=== PATIENT | female | born 2000 | race Caucasian/White ===

== ENCOUNTER 2021-09-06 11:34 | Outpatient (REF) | payer OTHER, SELFPAY ==
[2021-09-07 10:18] LABS: Monotest Negative (Negative)
== END 2021-09-06 11:35 | disposition home or self-care (01) ==
LOC: HO.HMGCLDS 11:34
PROVIDERS: PCP Physician Assistant; Visit Provider Internal Medicine
DX: Z13.9 Encounter for screening, unspecified (principal)
CPT/HCPCS: 36415; 86308

== ENCOUNTER 2022-06-27 16:36 | Outpatient (REF) | payer OTHER, SELFPAY ==
--- NOTE | ~2022-06-27 | XR_ITS ---
EXAMINATION: XR CHEST CLINICAL INFORMATION: Cough COMPARISON: None TECHNIQUE: 2 views of the chest were obtained. FINDINGS: The lungs are well expanded. There is no focal consolidation, edema, or effusion. No pneumothorax. The cardiomediastinal silhouette is within normal limits. No acute osseous abnormality. XR/XR chest 2V IMPRESSION: Clear lungs.
== END 2022-06-27 16:37 | disposition home or self-care (01) ==
LOC: HO.XRAY 16:36
PROVIDERS: Visit Provider Pediatrics
DX: R05.9 Cough, unspecified (principal)
CPT/HCPCS: 71046

== ENCOUNTER 2024-02-20 09:04 | Outpatient (AMB) | payer OTHER, SELFPAY ==
[2024-02-20 09:45] VITALS: BP 112/70; PULSE 87; TEMP 36.3; O2SAT 99; BMI 42.0
--- NOTE | 2024-02-20 09:45 | MHC.OFFWIV ---
Intake Vital Signs 02/20/24 09:45 Height 5 ft 7 in Weight 268 lb BMI 42.0 BP 112/70 Blood Pressure Location Lt brachial Position Sitting Pulse 87 Pulse Source Pulse Oximeter Temp 97.4 F Temp Source Temporal Artery Scan Pulse Oximetry (%) 99 Oxygen Delivery Method Room Air Intake Visit Reasons: EP congestion sinus sore throat Intake Note: pt is here today for congestion sinus sore throat started 3 days ago Patient Tobacco Use Status: Never used Tobacco Allergies prozac. POSSIBLE but urtica Allergy (Mild, Uncoded 02/20/24 10:10) urticarial rash on arms Medication List - Last Reconciled 02/20/24 by LITA Mallory amoxicillin-pot clavulanate 875-125 mg 1 tab PO Q12H ketoconazole 2% 1 appl topical DAILY Do you need a note to return to daycare/school/sports/work: Yes HPI HPI Comments History of Present Illness Details Patient is a 23-year-old female in today for sick visit. Patient states that for the past 3 days she has developed symptoms of sore throat, raspy throat, headache. Patient is strep positive in office today. Patient also states she has a rash on her left bicep x1 week. Has tried hydrocortisone cream with little effect. Patient denies chest pain, shortness a breath, nausea, vomiting, diarrhea, numbness. Patient is able to eat and drink and hold food down. [facility] Medical History Asthma, mild intermittent Surgical History No pertinent past surgical history Family History Mother No problems noted. Father Chronic mental disorder Substance abuse Social History Household Members: None Both parents involved: No Housing: Apartment Are you a primary day care director to a significant other at home: No Patient Tobacco Use Status: Never used Tobacco Cognitive needs: No Hearing needs: No Vision needs: Yes Review of Systems Const All systems reviewed & are unremarkable except as noted in HPI and below Physical Exam Vital Signs: Last Vital Signs Temp 97.4 F 02/20/24 09:45 Pulse 87 02/20/24 09:45 BP 112/70 02/20/24 09:45 Pulse Ox 99 02/20/24 09:45 Oxygen Delivery Method Room Air 02/20/24 09:45 BMI result Body Mass Index 42.0 Vital signs reviewed and stable. Const Other: Appearance: Alert.? Oriented X3.? No acute distress.? Head: Normocephalic, atraumatic. Eyes: Pupils equal, round and reactive to light.? ENT: Pharynx erythema. +tonsilar exudates. Neck: Normal inspection.? Neck supple.?Full ROM. CVS: Normal heart rate and rhythm.? Pulses normal.? Respiratory: No respiratory distress.? Breath sounds normal.? Skin: Erythema in a ring, slightly raised, no discharge. Neuro: Oriented X 3.? No motor deficit.? No sensory deficit. CN 2-12 intact Results AMB Rapid Strep AMB Rapid Strep Positive Last Edit by Pipe Zimmerman MA on 02/20/24 10:02 Results Reviewed Results Reviewed: Laboratory Last Values Strep Scn Rapid Clinic Positive 02/20/24 10:01 Assessment & Plan Assessment & Plan (1) Strep throat: Comment: Patient will be given Augmentin to be taken as prescribed. Patient can also utilize [id number] septic call throat spray. Patient is able to drink and eat and hold down food without vomiting or nausea. Code(s): J02.0 - Streptococcal pharyngitis Plan: Take your medications as prescribed. If you were prescribed antibiotics today, it is important that you take your medication to their entirety, do not skip any doses, do not finish them early. Follow-up with your primary care provider this week. Return to the emergency department with new or worsening symptoms. Such as fevers, chills, chest pain, shortness of breath, nausea, vomiting, dizziness, headache, vision changes, lethargy In case of emergency call 911 (2) Tinea: Comment: Will give patient ketoconazole 2% topical cream to be applied directly to the area. Code(s): B35.9 - Dermatophytosis, unspecified Plan: Take your medications as prescribed. If you were prescribed antibiotics today, it is important that you take your medication to their entirety, do not skip any doses, do not finish them early. Follow-up with your primary care provider this week. Return to the emergency department with new or worsening symptoms. Such as fevers, chills, chest pain, shortness of breath, nausea, vomiting, dizziness, headache, vision changes, lethargy In case of emergency call 911 Plan Follow-up with PCP Orders: Orders SARS-CoV2/FLU/RSV Today J06.9 - Acute upper respiratory infection, unspecified Medications: New amoxicillin-pot clavulanate 875-125 mg 1 tab PO Q12H 14 tabs 0RF ketoconazole 2% 1 appl topical DAILY 30 grams 0RF Coding Level of Care Code Est Pt Level 3 (14014) Diagnoses Strep throat J02.0 Tinea B35.9 Time Spent (min) 25
== END 2024-02-20 11:22 | disposition home or self-care (01) ==
PROVIDERS: PCP Physician Assistant; Visit Provider Nurse Practitioner Primary Care
DX: J02.0 Streptococcal pharyngitis (principal); B35.9 Dermatophytosis, unspecified
CPT/HCPCS: 87880; 99213

== ENCOUNTER 2024-02-20 13:27 | Outpatient (REF) | payer OTHER, SELFPAY ==
[2024-02-20 14:12] LABS: Influenza A PCR NEGATIVE (Negative); Influenza B PCR NEGATIVE (Negative); Resp Syncy Virus RNA Qual PCR NEGATIVE (Negative); SARS COV2 PCR INHOUSE NEGATIVE (Negative)
== END 2024-02-20 13:28 | disposition home or self-care (01) ==
LOC: HO.HMGCLNP 13:27
PROVIDERS: Visit Provider Nurse Practitioner Primary Care
DX: J06.9 Acute upper respiratory infection, unspecified (principal)
CPT/HCPCS: 0241U

== ENCOUNTER 2024-06-10 13:36 | Outpatient (AMB) | payer OTHER, SELFPAY ==
--- NOTE | 2024-06-10 13:40 | MHC.OFFWIV ---
Intake Vital Signs 06/10/24 13:41 Height 5 ft 7 in Weight 265 lb BMI 41.5 BP 112/72 Blood Pressure Location Lt brachial Position Sitting Pulse 112 H Pulse Source Pulse Oximeter Temp 98.4 F Temp Source Oral Pulse Oximetry (%) 98 Oxygen Delivery Method Room Air Intake Visit Reasons: Swollen throat, Pus, and discomfort Intake Note: Patient here for sore throat, discomfort and pus coming from tonsils. Patient Tobacco Use Status: Never used Tobacco Allergies prozac. POSSIBLE but urtica Allergy (Mild, Uncoded 06/10/24 13:43) urticarial rash on arms Do you need a note to return to daycare/school/sports/work: Yes HPI Swollen throat, Pus, and discomfort HPI Details This note is constructed using voice recognition software. While every effort has been made to ensure accuracy, securities supervisor errors may have been included. The patient is a 23 year old female who presents to the clinic today with for the past few days. She denies fever, chills, cough, shortness of breath. She has been around her boyfriend who has similar symptoms. She looked in the back of her throat noticed pus, felt that she could have had strep throat. She requests treatment for yeast infection as she notes that she gets 1 with each antibiotic. [facility] Medical History Asthma, mild intermittent Surgical History No pertinent past surgical history Family History Mother No problems noted. Father Chronic mental disorder Substance abuse Social History Household Members: None Both parents involved: No Housing: Apartment Are you a primary child care center administrator to a significant other at home: No Patient Tobacco Use Status: Never used Tobacco Cognitive needs: No Hearing needs: No Vision needs: Yes Review of Systems Const All systems reviewed & are unremarkable except as noted in HPI and below Physical Exam Vital Signs: Last Vital Signs Temp 98.4 F 06/10/24 13:41 Pulse 112 H 06/10/24 13:41 BP 112/72 06/10/24 13:41 Pulse Ox 98 06/10/24 13:41 Oxygen Delivery Method Room Air 06/10/24 13:41 BMI result Body Mass Index 41.5 Const General: cooperative, healthy appearing, comfortable and no acute distress Orientation/consciousness: patient oriented x3 Limitations: no limitations HEENT Head: Yes normal to inspection Ears: hearing grossly normal bilaterally, external ears normal and TM's normal bilaterally General nose exam: Normal external nose present, Normal nares present and No nasal discharge present Face and sinus: Yes normal facial exam and Yes sinuses nontender Mouth: Normal oral and palatal mucosa present and moist mucous membranes Throat: Yes tonsils normal, Yes uvula midline and Yes posterior oropharynx abnormal (Erythema with exudate) Eyes General: appearance normal, both eyes and all related structures Neck Neck: Yes normal visual inspection and Yes lymphadenopathy (anterior) Resp Effort & Inspection: normal respiratory effort, able to speak in complete sentences, Actively coughing, no respiratory distress, not tachypneic, no tripod positioning and no use of accessory muscles Auscultation: clear to auscultation bilaterally Cardio Rate: regular rate Rhythm: regular rhythm Heart sounds: normal S1 and S2 Skin General skin exam: no rashes or lesions noted Neuro General: patient oriented x3 Extrem General: Yes normal to inspection and Yes no clubbing, cyanosis or edema Results AMB Rapid Strep AMB Rapid Strep Positive Last Edit by PRANAV Radford on 06/10/24 13:51 Results Reviewed Results Reviewed: Laboratory Last Values Strep Scn Rapid Clinic Positive 06/10/24 13:50 Assessment & Plan Assessment & Plan (1) Strep throat: Code(s): J02.0 - Streptococcal pharyngitis Plan Antimicrobial therapy sent to requested pharmacy. Advised patient to change toothbrush after 24 hours of antimicrobial treatment. Advised warm saltwater gargle for symptomatic management as well as NSAIDs. Advised avoidance contact with others until she is 24 hours antibiotic treatment. Given the patient has had yeast infections with this similar antibiotics in the past, we will send fluconazole for symptomatic management should this symptoms occur. Orders: Orders AMB Rapid Strep Screen Today Neeta Cruz PA-C Z13.9 - Encounter for screening, unspecified Medications: New penicillin V potassium 500 mg PO TID 10 days 30 tabs 0RF Jessica Avelar NP fluconazole 150 mg PO ONCE 1 dose 1 tab 0RF Jessica Avelar NP Coding Level of Care Code Est Pt Level 3 (73282) Diagnoses Strep throat J02.0
[2024-06-10 13:41] VITALS: BP 112/72; PULSE 112; TEMP 36.9; O2SAT 98; BMI 41.5
== END 2024-06-10 14:28 | disposition home or self-care (01) ==
PROVIDERS: PCP Physician Assistant; Visit Provider Registered Nurse
DX: Z13.9 Encounter for screening, unspecified (principal); J02.0 Streptococcal pharyngitis
CPT/HCPCS: 87880; 99213

== ENCOUNTER 2024-07-06 13:27 | Outpatient (AMB) | payer OTHER, SELFPAY ==
--- NOTE | 2024-07-06 13:29 | MHC.OFFWIV ---
Intake Vital Signs 07/06/24 13:30 Height 5 ft 7 in Weight 252 lb BMI 39.5 BP 122/84 Blood Pressure Location Lt brachial Position Sitting Pulse 120 H Pulse Source Pulse Oximeter Temp 98.4 F Temp Source Oral Pulse Oximetry (%) 98 Intake Visit Reasons: EP UTI? Intake Note: pt c/o urinary frequency and discomfort, cloudiness, burning. Started Saturday Patient Tobacco Use Status: Never used Tobacco Allergies prozac. POSSIBLE but urtica Allergy (Mild, Uncoded 07/06/24 13:29) urticarial rash on arms Do you need a note to return to daycare/school/sports/work: Yes HPI HPI Comments History of Present Illness Details Patient presents to the walk-in today for sick visit Complaining of UTI symptoms for last 3 days Endorses cloudy urine, slight odor to the urine, pain with urination. Denies nausea, vomiting, diarrhea, abdominal pain, back pain, fevers, chills, weakness, blood in urine Denies chance of Denies concern for STI PFSH Medical History Asthma, mild intermittent Surgical History No pertinent past surgical history Family History Mother No problems noted. Father Chronic mental disorder Substance abuse Social History Household Members: None Housing: Apartment Are you a primary rn managed care to a significant other at home: No Patient Tobacco Use Status: Never used Tobacco Cognitive needs: No Hearing needs: No Vision needs: Yes Review of Systems Const All systems reviewed & are unremarkable except as noted in HPI and below Physical Exam Vital Signs: Last Vital Signs Temp 98.4 F 07/06/24 13:30 Pulse 120 H 07/06/24 13:30 BP 122/84 07/06/24 13:30 Pulse Ox 98 07/06/24 13:30 BMI result Body Mass Index 39.5 General: awake, alert, oriented. Answers questions appropriately. Fully engaged in examination. Skin: warm, dry, intact HEENT: Normocephalic. Hearing intact. Cardiac: External chest normal in appearance. Respiratory: No cough, audible wheezing or stridor. Abdomen: without gross distension. soft, nontender. no guarding. no CVA tenderness MS: No obvious swelling or deformities. Neurological: Oriented to person, place, time and situation. Thought process intact. No gait abnormalities appreciated. Psychiatric: Appropriate mood and affect. Good judgment and insight. Results AMB Urinalysis, Automated UA Leukoctes 125 Martha/uL Last Edit by Roel Self CMA on 07/06/24 13:44 UA Nitrite Positive Last Edit by Roel Self CMA on 07/06/24 13:44 UA Urobilinogen 0.2 mg/dL Last Edit by Roel Self CMA on 07/06/24 13:44 UA Protein 15 mg/dL Last Edit by Roel Self CMA on 07/06/24 13:44 UA pH 6.0 Last Edit by Roel Self CMA on 07/06/24 13:44 UA Blood 80 Emil/uL Last Edit by Roel Self CMA on 07/06/24 13:44 UA Specific [place] 1.015 Last Edit by Roel Self CMA on 07/06/24 13:44 UA Ketone Negative Last Edit by Roel Self CMA on 07/06/24 13:44 UA Bilirubin 0 mg/dL Last Edit by Roel Self CMA on 07/06/24 13:44 UA Glucose 0 mg/dL Last Edit by Roel Self CMA on 07/06/24 13:44 Results Reviewed Results Reviewed: Laboratory Last Values Urine pH (Auto) 6.0 07/06/24 13:43 Specific [place] (Auto) 1.015 07/06/24 13:43 Urine Protein (Auto) 15 mg/dL 07/06/24 13:43 Glucose (UA)(Auto) 0 mg/dL 07/06/24 13:43 Urine Ketones (Auto) Negative 07/06/24 13:43 Urine Blood (Auto) 80 Emil/uL 07/06/24 13:43 Urine Nitrite (Auto) Positive 07/06/24 13:43 Urine Bilirubin (Auto) 0 mg/dL 07/06/24 13:43 Urine Urobilinogen (Auto) 0.2 mg/dL 07/06/24 13:43 Leukocyte Esterase (Auto) 125 Martha/uL 07/06/24 13:43 Assessment & Plan Assessment & Plan (1) Urinary tract infection: Code(s): N39.0 - Urinary tract infection, site not specified Plan Macrobid 100 mg p.o. twice daily x5 days Pyridium 100 mg p.o. t.i.d. as needed Increase fluid intake. Return to clinic for new fever or back pain or if symptoms persist. Orders: Orders AMB Urinalysis Automated Today Neeta Cruz PA-C Z13.9 - Encounter for screening, unspecified CT NG by PCR Today Neeta Cruz PA-C Z13.9 - Encounter for screening, unspecified Medications: New nitrofurantoin monohyd/m-cryst 100 mg (Macrobid) must administer with a meal/food 100 mg PO Q12H 5 days 10 caps 0RF Nikky Rangel APRN, HOME ECONOMICS EXTENSION WORKER phenazopyridine (Pyridium) 100 mg PO TID PRN 6 tabs 0RF pain Nikky Rangel APRN, HOME ECONOMICS EXTENSION WORKER Coding Level of Care Code Est Pt Level 3 (92636) Diagnoses Urinary tract infection N39.0
[2024-07-06 13:30] VITALS: BP 122/84; PULSE 120; TEMP 36.9; O2SAT 98; BMI 39.5
== END 2024-07-06 14:16 | disposition home or self-care (01) ==
PROVIDERS: PCP Physician Assistant; Visit Provider Registered Nurse Emergency
DX: Z13.9 Encounter for screening, unspecified (principal); N39.0 Urinary tract infection, site not specified
CPT/HCPCS: 81003; 99213

== ENCOUNTER 2024-07-06 13:56 | Outpatient (REF) | payer OTHER, SELFPAY ==
[2024-07-06 17:57] LABS: CT PCR DETECTED (Not Detect.); NG PCR NOT DETECTED (Not Detect.)
== END 2024-07-06 13:57 | disposition home or self-care (01) ==
LOC: HO.LAB 13:56
PROVIDERS: Visit Provider Physician Assistant
DX: Z13.9 Encounter for screening, unspecified (principal)
CPT/HCPCS: 87491; 87591

== ENCOUNTER 2024-11-30 10:51 | Outpatient (AMB) | payer OTHER, SELFPAY ==
--- NOTE | 2024-11-30 11:11 | MHC.OFFWIV ---
Intake Vital Signs 11/30/24 11:12 Weight 229 lb BP 122/80 Blood Pressure Location Rt brachial Position Sitting Pulse 81 Pulse Source Pulse Oximeter Temp 98.2 F Temp Source Oral Pulse Oximetry (%) 98 Oxygen Delivery Method Room Air Intake Visit Reasons: EP ? Yeast infection Intake Note: Patient here for yeast infection that started Saturday. she has been trying monistat. pt is on menstrual cycle. Patient Tobacco Use Status: Never used Tobacco Allergies prozac. POSSIBLE but urtica Allergy (Mild, Uncoded 11/30/24 11:13) urticarial rash on arms Do you need a note to return to daycare/school/sports/work: No HPI HPI Comments History of Present Illness Details 24 y/o female patient who presents to the walk in clinic with c/o Vaginal discharge and itching since Saturday. She used OTC Monistat 1 day dose with no relief. She is currently Spotting - has IUD. Sexually active with 1 male partner. [facility] Medical History (Updated 11/30/24 @ 11:32 by Brittaney Allen NP) Vaginitis and vulvovaginitis Asthma, mild intermittent Surgical History No pertinent past surgical history Family History Mother No problems noted. Father Chronic mental disorder Substance abuse Social History Household Members: None Both parents involved: No Housing: Apartment Are you a primary farm or ranch animal caretaker to a significant other at home: No Patient Tobacco Use Status: Never used Tobacco Cognitive needs: No Hearing needs: No Vision needs: Yes Review of Systems Const All systems reviewed & are unremarkable except as noted in HPI and below Physical Exam Vital Signs: Last Vital Signs Temp 98.2 F 11/30/24 11:12 Pulse 81 11/30/24 11:12 BP 122/80 11/30/24 11:12 Pulse Ox 98 11/30/24 11:12 Oxygen Delivery Method Room Air 11/30/24 11:12 Const General: cooperative and no acute distress Nutritional Appearance: obese Orientation/consciousness: patient oriented x3 General: Yes no CVA tenderness External Female Exam: normal external appearance Speculum Exam - Vagina: abnormal vaginal discharge white and erythematous Speculum Exam - Cervix: Cervical os open, Abnormal cervical discharge present white, nontender and Other cervical findings present (Menstrual Blood present) Bimanual exam- vagina & uterus: uterine size normal, No Cervical tenderness present and non-tender OB/external & speculum: Cervical os open Back/Spine/Pelvis Back: no CVA tenderness Neuro General: patient oriented x3, gait normal and moves all extremities Psych Speech and movement: Normal speech and movement present Assessment & Plan Assessment & Plan (1) Vaginitis and vulvovaginitis: Code(s): N76.0 - Acute vaginitis Plan: Pelvic/Vaginal Exam consistent with Sonia Ordered Fluconazole. Medications: New fluconazole TAKE 1 TABLET NOW, MAY REPEAT SECOND DOSE IN 3 DAYS (72 HOURS). 150 mg PO DAILY 7 tabs 0RF N76.0 - Acute vaginitis Coding Level of Care Code Est Pt Level 4 (69129) Diagnoses Vaginitis and vulvovaginitis N76.0 Time Spent (min) 20
[2024-11-30 11:12] VITALS: BP 122/80; PULSE 81; TEMP 36.8; O2SAT 98
--- OUTSIDE RECORDS SUMMARY | 2024-11-30 11:54 | XMS_ITS | Clinical Summary ---
Author Organization [employer] Address [address] [place] [address] Care Team Providers Care Photovoltaic Solar Cell Designer Name Role Phone Unavailable Primary Care Provider Unavailabl e Allergies No known active allergies Medications No known medications Immunizations Name Administration Dates Next Due Meningococcal B, Recombinant 05/04/2021 Meningococcal [id number] 12/04/2017 Pfizer Covid-19 Vaccine 12+ Bivalent 12/31/2022 Social History Tobacco Use Types Packs/Day Years Used Date Smoking Tobacco: Never Tobacco Cessation:Counseling Given: No Alcohol Use Standard Drinks/Week Comments Yes 0 (1 standard drink = 0.6 oz pur e alcohol) holidays Comments Unknown Sex and Gender Information Value Date Recorded Sex Assigned at Female 08/27/2022 10:38 AM EDT Legal Sex Female 10:38 AM EDT Gender Identity Choose not to disclose 10:38 AM EDT Sexual Orientation Choose not to disclose 2021 10:38 AM EDT Last Filed Vital Signs Vital Sign Reading Time Taken Comments Blood Pressure 125/74 03/18/2023 3:35 PM EDT Pulse 63 03/18/2023 3:35 PM EDT Temperature - - Respiratory Rate - - Oxygen Saturation - - Inhaled Oxygen Concentration - - Weight - - Height - - Body Mass Index - - Plan of Treatment Health Maintenance Due Date Last Done Comments Chlamydia and Gonorrhea Screening 2001 Depression Screening 2001 HIV Screening 2001 SDOH Screening 2001 Alcohol/Substance Use Screening 2013 Family Planning (PISQ) 2016 HPV Vaccines (1 - 3-dose series) 2016 Hepatitis C Screening 2019 DTaP/Tdap/Td Vaccines (1 - Tdap) 2020 Hepatitis B Vaccines (1 of 3 - 19+ 3-dose series) 2020 Dental Prophylaxis 12/29/2021 06/30/2021 Pap Smear 2022 Dental Oral Exam 09/19/2023 03/18/2023, 06/13/2021 Tobacco Screening 04/12/2024 04/12/2023 Dental X-Ray: Bitewings 04/13/2024 04/12/20 23, 03/18/2023, 06/13/2021 Dental X-Ray: Full Mouth 06/14/2024 06/13/2021 COVID-19 Vaccine ( season) 2024 12/31/2022, 01/20/2022, 04/10/2021, Additional history exists Influenza Vaccine (#1) 2024 Zoster Vaccines (1 of 2) 2051 RSV Patients and Patients Aged 60 years or older (1 - 1-dose 75+ series) 2076 Meningococcal Vaccine Completed 12/04/2017 HIB Vaccines Aged Out No longer eligi ble based on patient's age to complete this topic Hepatitis A Vaccines Aged Out No long er eligible based on patient's age to complete this topic IPV Vaccines Aged Out No longer eligi ble based on patient's age to complete this topic Pneumococcal Vaccine: Pediatrics (0 to 5 Years) and At-Risk Patients (6 to 49) Years) Aged Out No longer eligible based on patient's age to complete this topic RSV under 20 months Aged Out No longe r eligible based on patient's age to complete this topic Rotavirus Vaccines Aged Out No longer eligible based on patient's age to complete this topic Procedures Procedure Name Priority Date/Time Associated Diagnosis Comments BITEWING - SINGLE RADIOGRAPHIC IMAGE Routine 04/12/2023 8:00 AM EDT PERIODIC ORAL EVALUATION - ESTABLISHED PATIENT Routine 03/18/2023 3:00 PM EDT PROPHYLAXIS - ADULT Routine 06/30/2021 1 2:00 AM EDT DIAGNOSTIC - DIAGNOSTIC IMAGING - INTRAORAL - COMPREHENSIVE SERIES OF RADIOGRAPHIC IMAGES Routine 06/13/2021 12:00 AM EDT from Last 3 Months or Most Recently Relevant to Health Maintenance Insurance DENTAL - [employer] DENTAL - [employer]
--- OUTSIDE RECORDS SUMMARY | 2024-11-30 11:54 | XMS_ITS | Encounter Summary ---
Author Organization [employer] [facility] Address [address] [place] [address] Care Team Providers Care Bisque Grader Name Role Phone Unavailable Primary Care Provider Unavailabl e Encounter Details Date Type Department Care Team (Latest Contact Info) Description 06/13/2021 Abstract [facility] CONVERSIONS Dental, Provider, DDS Social History Tobacco Use Types Packs/Day Years Used Date Smoking Tobacco: Never Assessed Comments Unknown Sex and Gender Information Value Date Recorded Sex Assigned at Female 08/27/2022 10:38 AM EDT Legal Sex Female 10:38 AM EDT Gender Identity Choose not to disclose 10:38 AM EDT Sexual Orientation Choose not to disclose 2021 10:38 AM EDT documented as of this encounter Plan of Treatment Not on file documented as of this encounter Visit Diagnoses Not on filedocumented in this encounter
== END 2024-11-30 11:56 | disposition home or self-care (01) ==
PROVIDERS: PCP Physician Assistant; Visit Provider Nurse Practitioner Family
DX: N76.0 Acute vaginitis (principal)

== ENCOUNTER 2024-12-11 14:19 | Outpatient (REF) | payer OTHER, SELFPAY ==
--- NOTE | ~2024-12-11 | XR_ITS ---
CLINICAL HISTORY: M54.6 - Pain in thoracic spine 2 views thoracic spine Comparison: None Findings: Normal vertebral body alignment. Limited evaluation of the upper thoracic spine on the lateral view due to the overlapping structures. No acute fractures or dislocation. No significant degenerative change. IMPRESSION: No acute findings. This document has been electronically signed by: Adarsh Menon MD on 12/11/2024 15:53:14
--- OUTSIDE RECORDS SUMMARY | 2024-12-11 14:57 | XMS_ITS | Encounter Summary ---
Author Organization [employer] [facility] Address [address] [place] [address] Care Team Providers Care Barrel Loader Name Role Phone Unavailable Primary Care Provider Unavailabl e Encounter Details Date Type Department Care Team (Latest Contact Info) Description 06/13/2021 Abstract [facility] CONVERSIONS Dental, Provider, DDS Social History [...]
--- OUTSIDE RECORDS SUMMARY | 2024-12-11 14:57 | XMS_ITS | Clinical Summary ---
Author Organization [employer] [facility] [employer] Address [address] [place] [address] Care Team Providers Care Caster Helper Name Role Phone Unavailable Primary Care Provider [...]
== END 2024-12-11 14:20 | disposition home or self-care (01) ==
LOC: HO.HMGCX 14:19
PROVIDERS: PCP Physician Assistant; Visit Provider Nurse Practitioner Family
DX: M54.6 Pain in thoracic spine (principal)
CPT/HCPCS: 72070; 81003

== ENCOUNTER 2024-12-11 14:19 | Outpatient (AMB) | payer OTHER, SELFPAY ==
--- OUTSIDE RECORDS SUMMARY | 2024-12-11 14:22 | XMS_ITS | Encounter Summary ---
Author Organization [facility] Address [address] [place] [address] Care Team Providers Care Setup Operator Name Role Phone Unavailable Primary Care Provider Unavailabl e Encounter Details Date Type Department Care Team (Latest Contact Info) Description 06/13/2021 Abstract [facility] CONVERSIONS Dental, Provider, DDS Social History Tobacco [...]
--- OUTSIDE RECORDS SUMMARY | 2024-12-11 14:22 | XMS_ITS | Clinical Summary ---
Author Organization [email or web address] Address [address] [facility] [address] [place] [address] Care Team Providers Care Aeronautical Engineering Professor Name Role Phone Unavailable Primary Care Provider [...] ADULT Routine 06/30/2021 1 2:00 AM EDT INTRAORAL - COMPLETE SERIES OF RADIOGRAPHIC IMAGES Routine 06/13/2021 12:00 AM EDT from Last 3 Months or Most Recently Relevant to Health Maintenance Insurance DENTAL - [employer] DENTAL - [employer]
--- NOTE | 2024-12-11 14:35 | MHC.OFFWIV ---
Intake Vital Signs 12/11/24 14:37 Weight 228 lb BP 124/80 Blood Pressure Location Rt brachial Position Sitting Pulse 77 Pulse Source Pulse Oximeter Pulse Oximetry (%) 98 Oxygen Delivery Method Room Air Intake Visit Reasons: EP-back pain, chills, blood urine, fever Intake Note: Patient here for severe back pain, chills/fevers, blood in urine which started yesterday. Patient Tobacco Use Status: Never used Tobacco Allergies prozac. POSSIBLE but urtica Allergy (Mild, Uncoded 11/30/24 11:13) urticarial rash on arms Do you need a note to return to daycare/school/sports/work: Yes HPI EP-back pain, chills, blood urine, fever HPI Details This is a 24-year-old female patient presents to the walk-in clinic today with a several day history of mid back pain. She denies any inciting event or accident. She denies any heavy lifting. She states pain is severe and is ?deep . It is causing difficulty sleeping. She has also had feelings of being hot/cold. She denies any dysuria or urinary concerns. Denies any flank pain. Denies any GI symptoms. Denies any shortness of breath or other sick symptoms. She has been taking extra-strength Tylenol without any relief. [facility] Medical History Vaginitis and vulvovaginitis Asthma, mild intermittent Surgical History No pertinent past surgical history Family History Mother No problems noted. Father Chronic mental disorder Substance abuse Social History Household Members: None Both parents involved: No Housing: Apartment Are you a primary career technical education instructor to a significant other at home: No Patient Tobacco Use Status: Never used Tobacco Cognitive needs: No Hearing needs: No Vision needs: Yes Review of Systems Const All systems reviewed & are unremarkable except as noted in HPI and below Physical Exam Vital Signs: Last Vital Signs Pulse 77 12/11/24 14:37 BP 124/80 12/11/24 14:37 Pulse Ox 98 12/11/24 14:37 Oxygen Delivery Method Room Air 12/11/24 14:37 Const General: cooperative, healthy appearing, comfortable and no acute distress HEENT Head: Yes normal to inspection Ears: hearing grossly normal bilaterally Neck Neck: Yes no lymphadenopathy Resp Effort & Inspection: normal respiratory effort and able to speak in complete sentences Auscultation: clear to auscultation bilaterally Cardio Rate: regular rate Rhythm: regular rhythm Back/Spine/Pelvis Other: mid thoracic back pain, approx level T6-8. Unable to reproduce pain. Patient states it is deep . Normal ROM C/T/L spine. No CVA tenderness. No muscle TTP. Skin General skin exam: no rashes or lesions noted Extrem General: Yes capillary refill normal and Yes no clubbing, cyanosis or edema Psych Appearance: grossly normal Mental Status: mental status grossly normal Speech and movement: Normal speech and movement present Assessment & Plan Assessment & Plan (1) Thoracic back pain: Code(s): M54.6 - Pain in thoracic spine Qualifiers: Chronicity: acute Back pain laterality: midline Qualified Code(s): M54.6 - Pain in thoracic spine Plan: Midthoracic back pain. I am going to obtain x-ray to rule out any acute processes. She is aware she will be notified of results once they are available. Assessment is unremarkable. I will trial a short course of muscle relaxers and NSAIDs. We reviewed indications, use, possible side effects of these medications. We reviewed some gentle stretching, and I advise heat application. If symptoms do not resolve with time/conservative measures, or if new symptoms develop, she can certainly return to the clinic or go to the emergency department for evaluation. She verbalizes understanding and agrees to plan. Orders: Orders XR thoracic spine 2V Today M54.6 - Pain in thoracic spine Medications: New cyclobenzaprine 5 mg PO BEDTIME 7 days PRN 7 tabs 0RF muscle spasm M54.6 - Pain in thoracic spine meloxicam 15 mg PO DAILY 7 days 7 tabs 0RF M54.6 - Pain in thoracic spine Coding Level of Care Code Est Pt Level 4 (39939) Diagnoses Acute midline thoracic back pain M54.6 Chronicity: acute Back pain laterality: midline
[2024-12-11 14:37] VITALS: BP 124/80; PULSE 77; O2SAT 98
== END 2024-12-11 15:01 | disposition home or self-care (01) ==
PROVIDERS: PCP Physician Assistant; Visit Provider Nurse Practitioner Family
DX: Z13.9 Encounter for screening, unspecified (principal); M54.6 Pain in thoracic spine

== ENCOUNTER → 2024-12-11 14:57 | Outpatient (BNV) | payer OTHER, SELFPAY | PROVIDERS: PCP Physician Assistant; Visit Provider Nuclear Medicine | DX: M54.6 Pain in thoracic spine (principal) | CPT/HCPCS: 72070 ==